=== PATIENT | male | born 1955 | race Caucasian/White ===

== ENCOUNTER → 2016-06-20 | Outpatient (CLI) | payer BC ==
[2016-06-20 11:34] LABS: Bilirubin, Delta 0.4 mg/dL (0.0-0.2); Total Bilirubin 1.1 mg/dL (0.2-1.3); Total Protein 7.4 g/dL (6.3-8.2)
== END | disposition home or self-care (01) ==
LOC: LABWHC1 10:39
PROVIDERS: ATTEND Internal Medicine Cardiovascular Disease
DX: I25.10 Atherosclerotic heart disease of native coronary artery without angina pectoris (principal); E78.5 Hyperlipidemia, unspecified
CPT/HCPCS: 36415; 80061; 80076

== ENCOUNTER → 2016-12-30 | Outpatient (CLI) | payer BC ==
[2016-12-30 09:36] LABS: ALT 43 U/L (21-72); AST 28 U/L (17-59); Cholesterol 126 mg/dL (<200); HDL Cholesterol 53 mg/dL (40-60); Triglycerides 99 mg/dL (<150)
== END | disposition home or self-care (01) ==
LOC: LABWHC1 08:38
PROVIDERS: ATTEND Internal Medicine Cardiovascular Disease
DX: E78.5 Hyperlipidemia, unspecified (principal); I25.10 Atherosclerotic heart disease of native coronary artery without angina pectoris
CPT/HCPCS: 36415; 80061; 84450; 84460

== ENCOUNTER → 2018-06-19 | Outpatient (CLI) | payer BC ==
[2018-06-19 17:50] LABS: LDL Cholesterol,Calculated 58.2 mg/dL (0.0-131.0); VLDL Calculation 18.8 mg/dL (5.00-40.00)
== END | disposition home or self-care (01) ==
LOC: LABWHC1 08:21
PROVIDERS: ATTEND Internal Medicine Cardiovascular Disease
DX: I25.10 Atherosclerotic heart disease of native coronary artery without angina pectoris (principal); E78.5 Hyperlipidemia, unspecified
CPT/HCPCS: 36415; 80061; 84450; 84460

== ENCOUNTER → 2018-12-18 | Outpatient (CLI) | payer BC ==
[2018-12-18 12:38] LABS: LDL Cholesterol,Calculated 55.2 mg/dL (0.0-131.0); VLDL Calculation 27.8 mg/dL (5.00-40.00)
== END | disposition home or self-care (01) ==
LOC: LABWHC1 07:58
PROVIDERS: ATTEND Internal Medicine Cardiovascular Disease
DX: I25.10 Atherosclerotic heart disease of native coronary artery without angina pectoris (principal); E78.5 Hyperlipidemia, unspecified
CPT/HCPCS: 36415; 80061; 84450; 84460

== ENCOUNTER → 2019-06-25 | Outpatient (CLI) | payer BC ==
[2019-06-25 17:49] LABS: Chol/HDL Ratio 2.82; LDL Cholesterol,Calculated 60.8 mg/dL (0.0-131.0); VLDL Calculation 21.2 mg/dL (5.00-40.00)
== END | disposition home or self-care (01) ==
LOC: LABWHC1 09:24
PROVIDERS: ATTEND Internal Medicine Cardiovascular Disease
DX: E78.5 Hyperlipidemia, unspecified (principal); I25.10 Atherosclerotic heart disease of native coronary artery without angina pectoris
CPT/HCPCS: 36415; 80061; 84450; 84460

== ENCOUNTER → 2020-06-23 | Outpatient (CLI) | payer BC ==
[2020-06-23 15:44] LABS: Chol/HDL Ratio 2.93; LDL Cholesterol,Calculated 56.8 mg/dL (0.0-131.0); VLDL Calculation 22.2 mg/dL (5.00-40.00)
== END | disposition home or self-care (01) ==
LOC: LABWHC1 08:24
PROVIDERS: ATTEND Internal Medicine Cardiovascular Disease
DX: E78.2 Mixed hyperlipidemia (principal)
CPT/HCPCS: 36415; 80061

== ENCOUNTER → 2021-07-19 | Outpatient (CLI) | payer BC, MEDICARE ==
[2021-07-19 11:38] LABS: ALT 23 U/L (10-49); AST 23 U/L (14-35); Albumin 4.4 g/dL (3.8-4.9); Albumin/Globulin Ratio 1.84 (1.60-3.17); Alkaline Phosphatase 61 U/L (41-126); Bilirubin, Conjugated <0.20 mg/dL (0.20-0.40); Chol/HDL Ratio 2.75 Ratio; Globulin 2.4 g/dL (1.6-3.3); LDL Cholesterol,Calculated 53.9 mg/dL (0.0-131.0); Total Protein 6.8 g/dL (6.2-8.2)
== END | disposition home or self-care (01) ==
LOC: LABWHC1 07:14
PROVIDERS: ATTEND Internal Medicine Cardiovascular Disease
DX: I25.10 Atherosclerotic heart disease of native coronary artery without angina pectoris (principal); E78.5 Hyperlipidemia, unspecified
CPT/HCPCS: 36415; 80061; 80076

== ENCOUNTER → 2023-01-24 | Outpatient (CLI) | payer MEDICARE, BC ==
[2023-01-24 16:34] LABS: Chol/HDL Ratio 2.37 Ratio
[2023-01-24 16:40] LABS: ALT 25 U/L (10-49); AST 31 U/L (14-35); Albumin 4.6 d/dL (3.8-4.9); Albumin/Globulin Ratio 2.19 Ratio (1.60-3.17); Alkaline Phosphatase 55 U/L (41-126); BUN/Creat Ratio 19.56 Ratio (12.00-20.00); Blood Urea Nitrogen 17.6 mg/dL (9.0-27.0); Calcium 9.5 mg/dL (8.7-10.3); Carbon Dioxide 23.8 mmol/L (21.6-31.8); Chloride 108 mmol/L (96-109); Globulin 2.1 d/dL (1.6-3.3); Glucose 99 mg/dL (70-110); Potassium 4.6 mmol/L (3.5-5.5); Sodium 142 mmol/L (135-145); Total Bilirubin 0.9 mg/dL (0.3-1.2); Total Protein 6.7 d/dL (6.2-8.2)
== END | disposition home or self-care (01) ==
LOC: LABWHC1 08:11
PROVIDERS: ATTEND Internal Medicine Interventional Cardiology
DX: I10 Essential (primary) hypertension (principal); E78.2 Mixed hyperlipidemia
CPT/HCPCS: 36415; 80053; 80061

== ENCOUNTER → 2023-08-20 | Outpatient (CLI) | payer MEDICARE, BC ==
[2023-08-20 17:10] LABS: ALT 28 U/L (10-49); AST 27 U/L (14-35); Chol/HDL Ratio 2.77 Ratio
== END | disposition home or self-care (01) ==
LOC: LABWHC1 08:22
PROVIDERS: ATTEND Internal Medicine Interventional Cardiology
DX: E78.2 Mixed hyperlipidemia (principal)
CPT/HCPCS: 36415; 80061; 84450; 84460

== ENCOUNTER 2023-08-26 18:56 | Emergency (ER) | payer MEDICARE, BC ==
--- NOTE | 2023-08-26 19:21 | ED ---
Nausea/Vomiting/Diarrhea HPI - General Source: patient, RN notes reviewed Mode of arrival: ambulatory Limitations: no limitations <Bev Johnson - Last Filed: 08/26/23 19:20> <Emiliano Palacios - Last Filed: 08/27/23 01:09> - General Chief complaint: Nausea/Vomiting/Diarrhea Stated complaint: SOB dehydration NVD weakness Time Seen by Provider: 08/26/23 19:20 - History of Present Illness Initial comments: Quick note: Patient is a 68-year-old male presented to the ER with chief complaint of shortness of breath. Patient also reports he has been having palpitations, nausea, vomiting, diarrhea. He states he is dehydrated. Fever in triage. (Bev Johnson) 68-year-old male presenting to the ED with chief complaint nausea and vomiting. Patient states earlier today acute onset of nausea, vomiting, nonbloody diarrhea. When this all occurred states that he started to feel some shortness of breath as well. At this time, states vomiting and diarrhea have resolved and is no longer short of breath however does note that he still feels some dizziness described as feeling like he is going to pass out. No chest pain. Patient noted to have a fever while in triage. No other complaints at this time. (Emiliano Palacios) - Related Data Home Medications Medication Instructions Recorded Confirmed Atorvastatin [Lipitor] 20 mg PO BID 05/21/17 08/26/23 lisinopriL [Zestril] 2.5 mg PO DAILY 05/21/17 08/26/23 Aspirin EC [Ecotrin Low Dose] 81 mg PO DAILY 08/26/23 08/26/23 Nitroglycerin Sl Tabs [Nitrostat] 0.4 mg SL Q5M PRN 08/26/23 08/26/23 [place]-3/Dha/Epa/Fish Oil [Fish Oil 1 cap PO BID 08/26/23 08/26/23 1,000 mg Softgel] Previous Rx's Medication Instructions Recorded Metoprolol Tartrate [Lopressor] 12.5 mg PO BID #60 tab 08/01/14 Ondansetron Odt [Zofran Odt] 4 mg PO Q8HR PRN #10 tab 08/27/23 Allergies Allergy/AdvReac Type Severity Reaction Status Date / Time iodine Allergy Unknown Verified 08/26/23 22:45 shellfish derived [Shellfish] Allergy Swelling Verified 08/26/23 22:45 Review of Systems ROS Other: All systems not noted in ROS Statement are negative. <Bev Johnson - Last Filed: 08/26/23 19:20> ROS Other: All systems not noted in ROS Statement are negative. <Emiliano Palacios - Last Filed: 08/27/23 01:09> ROS Statement: Those systems with pertinent positive or pertinent negative responses have been documented in the HPI. Past Medical History Past Medical History: Coronary Artery Disease (CAD), Hyperlipidemia, Hypertension, Myocardial Infarction ([place]) Additional Past Medical History / Comment(s): . Last Myocardial Infarction Date:: 07/2014 History of Any Multi-Drug Resistant Organisms: None Reported Past Surgical History: Appendectomy, Heart Catheterization With Stent, Orthopedic Surgery, Tonsillectomy Additional Past Surgical History / Comment(s): rotator cuff Rt surgery, 07/30/14 stent x1, rt knee arthroscopy Past Anesthesia/Blood Transfusion Reactions: No Reported Reaction Additional Past Anesthesia/Blood Transfusion Reaction / Comment(s): . Date of Last Stent Placement:: 07/2014 Past Psychological History: No Psychological Hx Reported Smoking Status: Never smoker Past Alcohol Use History: Occasional Past Drug Use History: None Reported - Past Family History Mother Family Medical History: Cancer Additional Family Medical History / Comment(s): breast Father Additional Family Medical History / Comment(s): ruputered aorta <Bev Johnson - Last Filed: 08/26/23 19:20> General Exam Limitations: no limitations <Bev Johnson - Last Filed: 08/26/23 19:20> General appearance: alert, in no apparent distress Eye exam: Present: normal appearance ENT exam: Present: normal exam Neck exam: Present: normal inspection Respiratory exam: Present: normal lung sounds bilaterally Cardiovascular Exam: Present: regular rate, normal rhythm GI/Abdominal exam: Present: soft, normal bowel sounds. Absent: distended, tenderness, guarding, rebound, rigid Neurological exam: Present: alert, oriented X3 Skin exam: Present: warm, dry <Emiliano Palacios - Last Filed: 08/27/23 01:09> - General Exam Comments Initial Comments: Visual Physical Exam Vital signs reviewed General: Well-appearing, nontoxic, no acute distress. Head: Normocephalic, atraumatic Eyes: PERRLA, EOMI ENT: Airway patent Chest: Nonlabored breathing Skin: No visual rash, normal skin tone Neuro: Alert and oriented 3 Musculoskeletal: No gross abnormalities (Bev Johnson) Course Vital Signs 08/26/23 08/26/23 19:02 22:05 Temperature 100.5 F H 98.9 F Pulse Rate 104 H 87 Respiratory 18 18 Rate Blood Pressure 119/78 113/77 O2 Sat by Pulse 94 L 95 Oximetry Medical Decision Making <Bev Johnson - Last Filed: 08/26/23 19:20> - Lab Data Result diagrams: 08/26/23 19:26 08/26/23 19:26 <Emiliano Palacios - Last Filed: 08/27/23 01:09> - Medical Decision Making I performed the quick note portion of this chart. Electronically signed by Bev Johnson PA-C (Bev Johnson) Was pt. sent in by a medical professional or institution ([facility] Garibay, CONSTRUCTION CHECKER, urgent care, hospital, or [place] health care facility...) When possible be specific @ -No Did you speak to anyone other than the patient for history (EMS, parent, family, police, friend...)? What history was obtained from this source @ -No Did you review nursing and triage notes (agree or disagree)? Why? @ -I reviewed and agree with nursing and triage notes Were old charts reviewed (outside hosp., previous admission, EMS record, old EKG, old radiological studies, urgent care reports/EKG's, [place] health care facility records)? Report findings @ -No old charts were reviewed Differential Diagnosis (chest pain, altered mental status, abdominal pain women, abdominal pain men, vaginal bleeding, weakness, fever, dyspnea, syncope, headache, dizziness, GI bleed, back pain, seizure, CVA, palpatations, mental health, musculoskeletal)? @ -Differential Dyspnea: Coronary syndrome, arrhythmia, tamponade, asthma, COPD, pulmonary embolism, pneumonia, pneumothorax, pulmonary effusion, anaphylaxis, diabetic ketoacidosis, flailed chest, pulmonary contusion, diaphragmatic rupture, anemia, neuromuscular, this is not meant to be an all-inclusive list. Differential Abdominal Pain Men: Appendicitis, cholecystitis, diverticulosis, ischemic bowel, pancreatitis, hepatitis, UTI, gastroenteritis, AAA, incarcerated hernia, bowel obstruction, constipation, inflammatory bowel, hepatitis, peptic ulcer disease, splenic infarction, perforated viscus, testicular torsion, this is not meant to be an all-inclusive list EKG interpreted by me (3pts min.). @ -EKG interpreted me which showed a sinus rhythm 102 bpm with nonspecific findings. X-rays interpreted by me (1pt min.). @ -Chest x-ray interpreted me which revealed no evidence of acute finding. CT interpreted by me (1pt min.). @ -None done U/S interpreted by me (1pt. min.). @ -None done What testing was considered but not performed or refused? (CT, X-rays, U/S, labs)? Why? @ -None What meds were considered but not given or refused? Why? @ -None Did you discuss the management of the patient with other professionals (professionals i.e. , PA, CONSTRUCTION CHECKER, lab, RT, psych nurse, director social welfare, flying teacher, teacher, environmental compliance officer, case managers)? Give summary @ -No Was smoking cessation discussed for >3mins.? @ -No Was critical care preformed (if so, how long)? @ -No Were there social determinants of health that impacted care today? How? (Homelessness, low income, unemployed, alcoholism, drug addiction, transportation, low edu. Level, literacy, decrease access to med. care, [facility], rehab)? @ -No Was there de-escalation of care discussed even if they declined (Discuss DNR or withdrawal of care, Hospice)? DNR status @ -No What co-morbidities impacted this encounter? (DM, HTN, Smoking, COPD, CAD, Cancer, CVA, ARF, Chemo, Hep., AIDS, mental health diagnosis, sleep apnea, morbid obesity)? @ -None Was patient admitted / discharged? Hospital course, mention meds given and route, prescriptions, significant lab abnormalities, going to OR and other pertinent info. @ -Discharge 68-year-old male presented to the ED with acute onset nausea vomiting diarrhea. Also at this time felt shortness of breath however reports that this is now resolved. Labs reviewed. CBC shows an elevated white blood cell count 11.3 with elevated neutrophils at 10.3. Coagulation panel unremarkable including D- dimer which was 0.46. Chemistry panel largely unremarkable. Lactic acid 1.3. Serology panel unremarkable. Patient provided Toradol, IV fluids, Zofran and upon reevaluation reported significant improvement of symptoms and would like to go home. Symptoms likely viral in nature. Discharged home in stable condition. Discussed return precautions with patient and family who verbalized agreement. Undiagnosed new problem with uncertain prognosis? @ -No Drug Therapy requiring intensive monitoring for toxicity (Heparin, Nitro, Insulin, Cardizem)? @ -No Were any procedures done? @ -No Diagnosis/symptom? @ -Gastroenteritis Acute, or Chronic, or Acute on Chronic? @ -Acute Uncomplicated (without systemic symptoms) or Complicated (systemic symptoms)? @ -Uncomplicated Side effects of treatment? @ -No Exacerbation, Progression, or Severe Exacerbation? @ -No Poses a threat to life or bodily function? How? (Chest pain, [place], [place], pneumonia, PE, COPD, DKA, ARF, appy, cholecystitis, CVA, Diverticulitis, Homicidal, Suicidal, threat to staff... and all critical care pts) @ -No (Emiliano Palacios) - Lab Data Lab Results 08/26/23 08/26/23 08/26/23 Range/Units 19:26 19:26 19:26 WBC 11.3 H (3.8-10.6) k/uL RBC 5.76 (4.30-5.90) m/uL Hgb 17.7 H (13.0-17.5) gm/dL Hct 52.1 (39.0-53.0) % MCV 90.5 (80.0-100.0) fL MCH 30.7 (25.0-35.0) pg MCHC 33.9 (31.0-37.0) g/dL RDW 12.4 (11.5-15.5) % Plt Count 275 (150-450) k/uL MPV 7.7 Neutrophils % 92 % Lymphocytes % 4 % Monocytes % 3 % Eosinophils % 1 % Basophils % 0 % Neutrophils # 10.3 H (1.3-7.7) k/uL Lymphocytes # 0.4 L (1.0-4.8) k/uL Monocytes # 0.4 (0-1.0) k/uL Eosinophils # 0.1 (0-0.7) k/uL Basophils # 0.0 (0-0.2) k/uL PT 10.8 (10.0-12.5) sec INR 1.0 (<1.2) APTT 22.5 (22.0-30.0) sec D-Dimer 0.46 (<0.60) mg/L FEU Sodium 141 (137-145) mmol/L Potassium 4.4 (3.5-5.1) mmol/L Chloride 110 H (98-107) mmol/L Carbon Dioxide 19 L (22-30) mmol/L Anion Gap 12 mmol/L BUN 28 H (9-20) mg/dL Creatinine 1.04 (0.66-1.25) mg/dL Est GFR (CKD-EPI)AfAm 86 (>60 ml/min/1.73 sqM) Est GFR (CKD-EPI)NonAf 74 (>60 ml/min/1.73 sqM) Glucose 129 H (74-99) mg/dL Plasma Lactic Acid Surjit (0.7-2.0) mmol/L Calcium 9.4 (8.4-10.2) mg/dL Magnesium 1.5 L (1.6-2.3) mg/dL Total Bilirubin 1.4 H (0.2-1.3) mg/dL AST 32 (17-59) U/L ALT 27 (4-49) U/L Alkaline Phosphatase 73 (38-126) U/L Troponin I (0.000-0.034) ng/mL Total Protein 7.6 (6.3-8.2) g/dL Albumin 4.7 (3.5-5.0) g/dL Influenza Type A (PCR) (Not Detectd) Influenza Type B (PCR) (Not Detectd) RSV (PCR) (Not Detectd) SARS-CoV-2 (PCR) (Not Detectd) 08/26/23 08/26/23 08/26/23 Range/Units 19:26 19:26 20:42 WBC (3.8-10.6) k/uL RBC (4.30-5.90) m/uL Hgb (13.0-17.5) gm/dL Hct (39.0-53.0) % MCV (80.0-100.0) fL MCH (25.0-35.0) pg MCHC (31.0-37.0) g/dL RDW (11.5-15.5) % Plt Count (150-450) k/uL MPV Neutrophils % % Lymphocytes % % Monocytes % % Eosinophils % % Basophils % % Neutrophils # (1.3-7.7) k/uL Lymphocytes # (1.0-4.8) k/uL Monocytes # (0-1.0) k/uL Eosinophils # (0-0.7) k/uL Basophils # (0-0.2) k/uL PT (10.0-12.5) sec INR (<1.2) APTT (22.0-30.0) sec D-Dimer (<0.60) mg/L FEU Sodium (137-145) mmol/L Potassium (3.5-5.1) mmol/L Chloride (98-107) mmol/L Carbon Dioxide (22-30) mmol/L Anion Gap mmol/L BUN (9-20) mg/dL Creatinine (0.66-1.25) mg/dL Est GFR (CKD-EPI)AfAm (>60 ml/min/1.73 sqM) Est GFR (CKD-EPI)NonAf (>60 ml/min/1.73 sqM) Glucose (74-99) mg/dL Plasma Lactic Acid Surjit 1.3 (0.7-2.0) mmol/L Calcium (8.4-10.2) mg/dL Magnesium (1.6-2.3) mg/dL Total Bilirubin (0.2-1.3) mg/dL AST (17-59) U/L ALT (4-49) U/L Alkaline Phosphatase (38-126) U/L Troponin I <0.012 (0.000-0.034) ng/mL Total Protein (6.3-8.2) g/dL Albumin (3.5-5.0) g/dL Influenza Type A (PCR) Not Detected (Not Detectd) Influenza Type B (PCR) Not Detected (Not Detectd) RSV (PCR) Not Detected (Not Detectd) SARS-CoV-2 (PCR) Not Detected (Not Detectd) Disposition <Bev Johnson - Last Filed: 08/26/23 19:20> Is patient prescribed a controlled substance at d/c from ED?: No Time of Disposition: 23:30 <Emiliano Palacios - Last Filed: 08/27/23 01:09> Clinical Impression: Gastroenteritis Disposition: HOME SELF-CARE Condition: Good Instructions (If sedation given, give patient instructions): Gastroenteritis (ED) Additional Instructions: Please return to the Emergency Department if symptoms worsen or any other concerns. Please follow-up with your primary care provider Prescriptions: Ondansetron Odt [Zofran Odt] 4 mg PO Q8HR PRN #10 tab PRN Reason: Nausea Referrals: Russell Emmanuel MD [Primary Care Provider] - 1-2 days
--- NOTE | 2023-08-26 19:37 | XR ---
EXAMINATION TYPE: XR chest 2V DATE OF EXAM: 08/26/2023 7:32 PM CLINICAL INDICATION:Male, 68 years old with history of shortness of breath; [facility] COMPARISON: Chest radiographs from TECHNIQUE: XR chest 2V Frontal and lateral views of the chest. FINDINGS: Lungs/Pleura: There is no evidence of pleural effusion, focal consolidation, or pneumothorax. Pulmonary vascularity: Unremarkable. Heart/mediastinum: Cardiomediastinal silhouette is unremarkable. Musculoskeletal: No acute osseous pathology. Other findings: None IMPRESSION: No acute cardiopulmonary disease/process.
[2023-08-26 19:50] LABS: ALT 27 U/L (4-49); AST 32 U/L (17-59); African American GFR (CKD) 86 (>60 ml/min/1.73 sqM); Albumin 4.7 g/dL (3.5-5.0); Alkaline Phosphatase 73 U/L (38-126); Anion Gap 12 mmol/L; Blood Urea Nitrogen 28 mg/dL (9-20); Calcium 9.4 mg/dL (8.4-10.2); Carbon Dioxide 19 mmol/L (22-30); Chloride 110 mmol/L (98-107); Glucose 129 mg/dL (74-99); Magnesium 1.5 mg/dL (1.6-2.3); Non-African American GFR(CKD) 74 (>60 ml/min/1.73 sqM); Potassium 4.4 mmol/L (3.5-5.1); Sodium 141 mmol/L (137-145); Total Bilirubin 1.4 mg/dL (0.2-1.3); Total Protein 7.6 g/dL (6.3-8.2)
[2023-08-26 20:02] LABS: Partial Thromboplastin Time 22.5 sec (22.0-30.0); Prothrombin Time 10.8 sec (10.0-12.5)
[2023-08-26 20:13] LABS: Basophils % (A) 0 %; Eosinophils # (A) 0.1 k/uL (0-0.7); Eosinophils % (A) 1 %; HCT 52.1 % (39.0-53.0); HGB 17.7 gm/dL (13.0-17.5); Lymphocytes # (A) 0.4 k/uL (1.0-4.8); Lymphocytes % (A) 4 %; MCH 30.7 pg (25.0-35.0); MCHC 33.9 g/dL (31.0-37.0); MCV 90.5 fL (80.0-100.0); Mean Platelet Volume 7.7; Monocytes # (A) 0.4 k/uL (0-1.0); Monocytes % (A) 3 %; Neutrophils # (A) 10.3 k/uL (1.3-7.7); Neutrophils % (A) 92 %; Platelet Count 275 k/uL (150-450); RBC 5.76 m/uL (4.30-5.90); RDW 12.4 % (11.5-15.5); WBC 11.3 k/uL (3.8-10.6)
[2023-08-26 23:01] VITALS: TEMP 98.9
[2023-08-26] MEDS: KETOROLAC 15 MG/ML 1 ML VIAL IVP STA (23:30)
[2023-08-26] MEDS: SODIUM CHLORIDE 0.9% 1,000 ML IV STA (23:31)
[2023-08-26] MEDS: ONDANSETRON 4 MG/2 ML VIAL IVP STA (23:31)
[2023-08-27] MEDS: SODIUM CHLORIDE 0.9% 1,000 ML IV STA (00:28)
[2023-08-27 01:34] VITALS: BP 123/74; PULSE 75; RESP 16
== END 2023-08-27 01:32 | disposition home or self-care (01) ==
LOC: EC 18:56
DX: K52.9 Noninfective gastroenteritis and colitis, unspecified (principal); R00.0 Tachycardia, unspecified; F32.A Depression, unspecified; Z91.041 Radiographic dye allergy status; Z91.013 Allergy to seafood
CPT/HCPCS: 36415; 93005; 85379; 80053; 83605; 83735; 84484; 85025; 85610; 85730; 87636; 71046; 99284; 96374; 96375; 96361 ×2; J2405; J1885

== ENCOUNTER 2023-10-02 08:24 | Emergency (ER) | payer MEDICARE, BC ==
[2023-10-02 08:42] VITALS: RESP 16
--- NOTE | 2023-10-02 08:50 | ED ---
General Adult HPI - General Chief complaint: Back Pain/Injury Stated complaint: Fall Time Seen by Provider: 10/02/23 08:38 Source: patient Mode of arrival: ambulatory Limitations: no limitations - History of Present Illness Initial comments: Dictation was produced using [employer] dictation software. please excuse any grammatical, word or spelling errors. Chief Complaint: 68-year-old male presents emergency department with left back pain History of Present Illness: Patient 68-year-old male yesterday in the evening he was rollerblading with his granddaughter. He states that he fell where his feet went under him and he landed on his left middle back. Denies any head injury. Patient denies any loss of consciousness. States that he had immediate pain. States he has pain worse when he takes a deep breath. He does not feel short of breath. Does not take any anticoagulation medications. Patient has multiple cardiac comorbidities. The ROS documented in this emergency department record has been reviewed and confirmed by me. Those systems with pertinent positive or negative responses have been documented in the HPI. All other systems are other negative and/or noncontributory. - Related Data Home Medications Medication Instructions Recorded Confirmed Atorvastatin [Lipitor] 20 mg PO BID 05/21/17 08/26/23 RX: lisinopriL [Zestril] 2.5 mg PO DAILY 05/21/17 08/26/23 Aspirin EC [Ecotrin Low Dose] 81 mg PO DAILY 08/26/23 08/26/23 [place]-3/Dha/Epa/Fish Oil [Fish Oil 1 cap PO BID 08/26/23 08/26/23 1,000 mg Softgel] RX: Nitroglycerin Sl Tabs 0.4 mg SL Q5M PRN 08/26/23 08/26/23 [Nitrostat] Previous Rx's Medication Instructions Recorded RX: Metoprolol Tartrate [Lopressor] 12.5 mg PO BID #60 tab 08/01/14 Ondansetron Odt [Zofran Odt] 4 mg PO Q8HR PRN #10 tab 08/27/23 HYDROcodone/APAP 5-325MG [[place] 1 tab PO Q6HR PRN 3 Days #12 tab 10/02/23 5-325] Lidocaine 5% Patch [Lidoderm] 1 patch TOPICAL DAILY PRN 5 Days 10/02/23 #5 patch Allergies Allergy/AdvReac Type Severity Reaction Status Date / Time iodine Allergy Unknown Verified 10/02/23 08:34 shellfish derived [Shellfish] Allergy Swelling Verified 10/02/23 08:34 Review of Systems ROS Statement: Those systems with pertinent positive or pertinent negative responses have been documented in the HPI. ROS Other: All systems not noted in ROS Statement are negative. Past Medical History Past Medical History: Coronary Artery Disease (CAD), Hyperlipidemia, Hypertension, Myocardial Infarction ([place]) Additional Past Medical History / Comment(s): . Last Myocardial Infarction Date:: 07/2014 History of Any Multi-Drug Resistant Organisms: None Reported Past Surgical History: Appendectomy, Heart Catheterization With Stent, Orthopedic Surgery, Tonsillectomy Additional Past Surgical History / Comment(s): rotator cuff Rt surgery, 07/30/14 stent x1, rt knee arthroscopy Past Anesthesia/Blood Transfusion Reactions: No Reported Reaction Additional Past Anesthesia/Blood Transfusion Reaction / Comment(s): . Date of Last Stent Placement:: 07/2014 Past Psychological History: No Psychological Hx Reported Smoking Status: Never smoker Past Alcohol Use History: Occasional Past Drug Use History: None Reported - Past Family History Mother Family Medical History: Cancer Additional Family Medical History / Comment(s): breast Father Additional Family Medical History / Comment(s): ruputered aorta General Exam - General Exam Comments Initial Comments: PHYSICAL EXAM: General Impression: Alert and oriented x3, not in acute distress HEENT: Normocephalic atraumatic, extra-ocular movements intact, pupils equal and reactive to light bilaterally, mucous membranes moist. Cardiovascular: Heart regular rate and rhythm Chest: Able to complete full sentences, no retractions, no tachypnea Abdomen: abdomen soft, non-tender, non-distended, no organomegaly Musculoskeletal: Pulses present and equal in all extremities, no peripheral edema, palpatory tenderness at the left mid back over the lower left ribs posteriorly, boggy soft tissues on the left Motor: no focal deficits noted Neurological: CN II-XII grossly intact, no focal motor or sensory deficits noted Skin: Intact with no visualized rashes Psych: Normal affect and mood Limitations: no limitations Course Vital Signs 10/02/23 08:32 Temperature 97.8 F Pulse Rate 55 L Respiratory 16 Rate Blood Pressure 149/85 O2 Sat by Pulse 98 Oximetry Medical Decision Making - Medical Decision Making Was pt. sent in by a medical professional or institution ([facility] Garibay, RISK MANAGEMENT INTERN, urgent care, hospital, or fpc...) When possible be specific @ -No Did you speak to anyone other than the patient for history (EMS, parent, family, police, friend...)? What history was obtained from this source @ - at the bedside aids in providing history Did you review nursing and triage notes (agree or disagree)? Why? @ -I reviewed and agree with nursing and triage notes Were old charts reviewed (outside hosp., previous admission, EMS record, old EKG, old radiological studies, urgent care reports/EKG's, fpc records)? Report findings @ -No old charts were reviewed Differential Diagnosis (chest pain, altered mental status, abdominal pain women, abdominal pain men, vaginal bleeding, musculoskeletal, weakness, fever, dyspnea, syncope, headache, dizziness, GI bleed, back pain, seizure, CVA, palpatations, mental health)? @ -Differential Chest Pain: Differential Musculoskeletal: Muscular strain, contusion, ligament sprain, fracture, arthritis, septic arthritis, bursitis, cellulitis, muscle spasm, nerve compression, DVT, arterial occlusion, herpes zoster, electrolyte abnormality, tumor.... This is not meant to be in all inclusive list EKG interpreted by me (3pts min.). @ -None done X-rays interpreted by me (1pt min.). @ -None done CT interpreted by me (1pt min.). @ -CT scan of the chest and lumbar spine shows 11th rib fracture with no complicating processes U/S interpreted by me (1pt. min.). @ -None done What testing was considered but not performed or refused? (CT, X-rays, U/S, labs)? Why? @ -None What meds were considered but not given or refused? Why? @ -None Did you discuss the management of the patient with other professionals (professionals i.e. [facility] Garibay, RISK MANAGEMENT INTERN, lab, RT, psych nurse, licensed master social worker, divorce lawyer, teacher, signals officer, case management associate)? Give summary @ -No Was smoking cessation discussed for >3mins.? @ -No Was critical care preformed (if so, how long)? @ -No Were there social determinants of health that impacted care today? How? (Homelessness, low income, unemployed, alcoholism, drug addiction, transportation, low edu. Level, literacy, decrease access to med. care, alf, rehab)? @ -No Was there de-escalation of care discussed even if they declined (Discuss DNR or withdrawal of care, Hospice)? DNR status @ -No What co-morbidities impacted this encounter? (DM, HTN, Smoking, COPD, CAD, Cancer, CVA, ARF, Chemo, Hep., AIDS, mental health diagnosis, sleep apnea, morbid obesity)? @ -None Was patient admitted / discharged? Hospital course, mention meds given and route, prescriptions, significant lab abnormalities, going to OR and other pertinent info. @ -68-year-old male presents to the emergency department with fall. He complains of mid left back pain. Vital signs upon arrival are within acceptable limits. Patient has reproducible palpatory tenderness along the left lateral mid back. Imaging studies shows 11th rib fracture. No complicating processes noted. Patient given incentive spirometer and educated on appropriate use of incentive spirometry. Patient given Lidoderm patch along with IM analgesia. Patient is healthy. Disposition options were discussed. Is agreeable with discharge with outpatient management of rib fracture. Return precautions discussed. Advised follow-up with primary care doctor. Patient given p analgesic prescriptions. Undiagnosed new problem with uncertain prognosis? @ -No Drug Therapy requiring intensive monitoring for toxicity (Heparin, Nitro, Insulin, Cardizem)? @ -No Were any procedures done? @ -No Diagnosis/symptom? Acute, or Chronic, or Acute on Chronic? Uncomplicated (without systemic symptoms) or Complicated (systemic symptoms)? @ -Rib fracture Side effects of treatment? @ -No Exacerbation, Progression, or Severe Exacerbation? @ -No Poses a threat to life or bodily function? How? (Chest pain, [place], [place], pneumonia, PE, COPD, DKA, ARF, appy, cholecystitis, CVA, Diverticulitis, Homicidal, Suicidal, threat to staff... and all critical care pts) @ -yes Disposition Clinical Impression: Rib fracture Disposition: HOME SELF-CARE Condition: Fair Instructions (If sedation given, give patient instructions): Rib Fracture (ED) Prescriptions: Lidocaine 5% Patch [Lidoderm] 1 patch TOPICAL DAILY PRN 5 Days #5 patch PRN Reason: Pain HYDROcodone/APAP 5-325MG [[place] 5-325] 1 tab PO Q6HR PRN 3 Days #12 tab PRN Reason: Severe Pain Is patient prescribed a controlled substance at d/c from ED?: Yes If prescribed controlled substance>3 days was MAPS reviewed?: Prescribed <3 Days Referrals: Russell Emmanuel MD [Primary Care Provider] - 1-2 days Time of Disposition: 09:51
[2023-10-02] MEDS: MORPHINE SULFATE 4 MG/ML SYRINGE IM STA (08:52)
--- NOTE | 2023-10-02 09:26 | CT ---
EXAMINATION TYPE: CT chest wo con DATE OF EXAM: 10/02/2023 COMPARISON: None HISTORY: Fall CT DLP: 1524.[address] of the chest was performed with lung and mediastinal window settings submitted. The la ck of contrast limits evaluation of the vascular, mediastinal and parenchymal structures including th e upper abdomen. LUNGS: The lungs are clear and free of infiltrate. No atelectasis. No pulmonary nodule or mass is de tected. No pleural effusion. No CT evidence of interstitial lung disease. MEDIASTINUM/OLEG: Thoracic aorta is of normal caliber with limited evaluation given lack of contrast . The heart is not enlarged. No evidence for mediastinal mass. No lymph nodes greater than 1cm. UPPER ABDOMEN: No significant abnormality is seen. OTHER: Fracture posterior left rib #11. IMPRESSION: 1. Fracture posterior left rib #11. 2. No evidence for pneumothorax or contusion.
--- NOTE | 2023-10-02 09:34 | CT ---
EXAMINATION TYPE: CT lumbar spine wo con DATE OF EXAM: 10/02/2023 COMPARISON: None HISTORY: Fall. Unenhanced CT of the lumbar spine was performed. Bone and soft tissue window settings are submitted as well as coronal and sagittal reconstructions. L1-L2: Normal disc space height. No disc herniation protrusion or central stenosis. No facet joint arthropathy. No evidence for foraminal encroachment. L2-L3: Normal disc space height. No disc herniation protrusion or central stenosis. No facet joint arthropathy. No evidence for foraminal encroachment. L3-L4: Moderate degenerative disc space narrowing with circumferential disc bulge. Hypertrophy ligame ntum flavum and facet joint arthropathy resulting in [id number]-dw-[id number] central stenosis. L4-L5: Mild to moderate degenerative disc space narrowing with posterior disc bulge with effacement v entral thecal sac resulting in bilateral lateral recess stenosis resulting in bilateral foraminal enc roachment as well. No central stenosis. L5-S1: Severe disc desiccation with vacuum disc. Posterior disc bulge. No central stenosis or herniat ion. Bilateral foraminal encroachment. No paraspinal masses are identified. Lumbar segments are free if fracture. IMPRESSION: 1. No evidence for fracture. 2. Degenerative disc disease as discussed above.
[2023-10-02] MEDS: LIDOCAINE 4% PATCH TOPICAL ONE (09:57)
[2023-10-02 10:12] VITALS: BP 144/82; PULSE 60; TEMP 978
== END 2023-10-02 10:03 | disposition home or self-care (01) ==
LOC: EC 08:24
DX: S22.32XA Fracture of one rib, left side, initial encounter for closed fracture (principal); Z91.041 Radiographic dye allergy status; Z91.013 Allergy to seafood; W18.30XA Fall on same level, unspecified, initial encounter
CPT/HCPCS: 72131; 71250; 99284; 96372; J2270